=== PATIENT | male | born 1965 | race Caucasian/White ===

== ENCOUNTER 2022-05-25 10:40 | Emergency (ER) | payer OTHER ==
[2022-05-25 11:27] VITALS: PULSE 75; TEMP 97.6
--- NOTE | 2022-05-25 12:17 | ED ---
General Adult HPI - General Chief complaint: Extremity Injury, Upper Stated complaint: [facility] - lt shoulder injury Time Seen by Provider: 05/25/22 11:06 Source: patient - History of Present Illness Initial comments: Dictation was produced using [employer] dictation software. please excuse any grammatical, word or spelling errors. 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 Patient states that he tried to catch a large metal beam with his left arm. He states that he Stated in an awkward position. Since then he's been having left trapezius and left shoulder pain. Patient denies any hist ory of chronic shoulder issues. No numbness and paresthesias to the left upper extremity. Denies any direct trauma to the area. He was sent here on behalf of [employer]. The ROS documented in this emergency department record has been reviewed and confirmed by me. Those systems with pertinent positive or negative responses have been documented in the HPI. All other systems are other negative and/or noncontributory. PHYSICAL EXAM: General Impression: Alert and oriented x3, not in acute distress HEENT: Normocephalic atraumatic, extra-ocular movements intact, pupils equal and reactive to light bilaterally, mucous membranes moist. Cardiovascular: Heart regular rate and rhythm Chest: Able to complete full sentences, no retractions, no tachypnea Musculoskeletal: Pulses present and equal in all extremities, no peripheral edema Motor: no focal deficits noted Neurological: CN II-XII grossly intact, no focal motor or sensory deficits noted Left upper extremity: Pain with internal rotation of the left shoulder, no palpatory tenderness to the clavicle or deltoid Skin: Intact with no visualized rashes Psych: Normal affect and mood ED course: 56-year-old male with presentation consistent with left shoulder strain. Vital signs upon arrival are within acceptable limits. No clinical suspicion of occult osseous fracture. Shoulder x-ray is unremarkable. Patient discharged. Given referral to orthopedic surgery for further care. - Related Data Allergies Allergy/AdvReac Type Severity Reaction Status Date / Time No Known Allergies Allergy Verified 05/25/22 11:27 Review of Systems ROS Statement: Those systems with pertinent positive or pertinent negative responses have been documented in the HPI. ROS Other: All systems not noted in ROS Statement are negative. Past Medical History Past Medical History: Hyperlipidemia, Hypertension Additional Past Medical History / Comment(s): hemachromatosis History of Any Multi-Drug Resistant Organisms: None Reported Past Surgical History: No Surgical Hx Reported Past Psychological History: No Psychological Hx Reported Smoking Status: Never smoker Past Alcohol Use History: None Reported Past Drug Use History: None Reported Course Vital Signs 05/25/22 11:21 Temperature 97.6 F Pulse Rate 75 Respiratory 18 Rate Blood Pressure 154/87 O2 Sat by Pulse 97 Oximetry Disposition Clinical Impression: Shoulder strain Disposition: HOME SELF-CARE Condition: Good Instructions (If sedation given, give patient instructions): Rotator Cuff Injury (ED) Is patient prescribed a controlled substance at d/c from ED?: No Referrals: Percy Ballesteros MD [Primary Care Provider] - 1-2 days Oleksandr Ball MD [STAFF PHYSICIAN] - 1-2 days Time of Disposition: 13:51
--- NOTE | 2022-05-25 13:47 | XR ---
EXAMINATION TYPE: XR shoulder complete LT DATE OF EXAM: 05/25/2022 COMPARISON: NONE HISTORY: Pain TECHNIQUE: Shoulder examined in 3 projections. FINDINGS: The humeral head articulates with the glenoid. The acromio-clavicular junction is normal. No acute fractures or dislocations are evident. A follow up study can be performed 7-10 days from acute trauma for continued pain. IMPRESSION: 1. No acute osseous abnormality left shoulder
[2022-05-25 14:06] VITALS: BP 144/76; RESP 20
== END 2022-05-25 14:06 | disposition home or self-care (01) ==
LOC: EC 10:40
DX: S46.912A Strain of unspecified muscle, fascia and tendon at shoulder and upper arm level, left arm, initial encounter (principal); I10 Essential (primary) hypertension; E78.5 Hyperlipidemia, unspecified; X50.0XXA Overexertion from strenuous movement or load, initial encounter; X50.1XXA Overexertion from prolonged static or awkward postures, initial encounter; Y93.89 Activity, other specified; Y92.89 Other specified places as the place of occurrence of the external cause
CPT/HCPCS: 99283